=== PATIENT | female | born 2005 | race African-American/Black ===

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

== ENCOUNTER 2024-02-07 14:38 | Emergency (ER) | payer OTHER ==
[~2024-02-07] VITALS: Ht 167.6 cm; Wt 72.6 kg
[~2024-02-07 14:38] MED LIST changes: +PENICILLIN VK500 MG PO
[2024-02-07] MEDS ORDERED: NAPROSYN500 MG PO (17:17)
[2024-02-07] MEDS ORDERED: NAPROXEN 250 MG TAB PO ONE (17:20)
== END 2024-02-07 17:32 | disposition home or self-care (01) ==
LOC: ED 14:38
DX: S66.911A Strain of unspecified muscle, fascia and tendon at wrist and hand level, right hand, initial encounter (principal); X58.XXXA Exposure to other specified factors, initial encounter; Y93.89 Activity, other specified; Y92.89 Other specified places as the place of occurrence of the external cause; Y99.0 Civilian activity done for income or pay